=== PATIENT | female | born 1955 | race Caucasian/White ===

== ENCOUNTER → 2023-08-08 08:50 | Outpatient (REF) | payer MEDICARE, OTHER, SELFPAY | LOC: HWWDC 08:50 | PROVIDERS: ATTENDING PHYSICIAN Family Medicine | DX: Z12.31 Encounter for screening mammogram for malignant neoplasm of breast (principal) | CPT/HCPCS: 77063; 77067 ==

== ENCOUNTER 2023-11-07 06:18 | Day surgery (SDC) | payer MEDICARE, OTHER, SELFPAY ==
[2023-11-07 08:10] VITALS: BMI 20.3
[2023-11-07 08:15] VITALS: BP 127/64
[2023-11-07 08:30] VITALS: BMI 20.3
[2023-11-07 09:48] VITALS: BP 118/62
[2023-11-07 10:00] VITALS: BP 134/55
[2023-11-07 10:09] VITALS: BP 114/66
== END 2023-11-07 10:20 | disposition home or self-care (01) ==
LOC: SDS 06:18
PROVIDERS: ATTENDING PHYSICIAN Internal Medicine Gastroenterology
DX: Z12.11 Encounter for screening for malignant neoplasm of colon (principal); D12.0 Benign neoplasm of cecum; D12.2 Benign neoplasm of ascending colon; K64.0 First degree hemorrhoids; D12.3 Benign neoplasm of transverse colon; Z86.010 Personal history of colon polyps; Z98.890 Other specified postprocedural states
CPT/HCPCS: 45385; 45380; 88305

== ENCOUNTER → 2024-10-22 13:08 | Outpatient (REF) | payer MEDICARE, OTHER, SELFPAY | LOC: HWWDC 13:08 | PROVIDERS: ATTENDING PHYSICIAN Family Medicine | DX: Z12.31 Encounter for screening mammogram for malignant neoplasm of breast (principal) | CPT/HCPCS: 77063; 77067 ==

== ENCOUNTER 2024-11-14 06:05 | Day surgery (SDC) | payer MEDICARE, OTHER, SELFPAY ==
[2024-11-14 06:58] VITALS: BP 154/85
[2024-11-14 07:17] VITALS: BMI 20.1
[2024-11-14 07:20] VITALS: BMI 20.1
[2024-11-14 09:15] VITALS: BP 124/61
[2024-11-14 09:30] VITALS: BP 127/76
== END 2024-11-14 09:45 | disposition home or self-care (01) ==
LOC: SDS 06:05
PROVIDERS: ATTENDING PHYSICIAN Internal Medicine Gastroenterology
DX: Z12.11 Encounter for screening for malignant neoplasm of colon (principal); K64.0 First degree hemorrhoids; D12.0 Benign neoplasm of cecum; K63.5 Polyp of colon; Z98.890 Other specified postprocedural states; Z86.0101 Personal history of adenomatous and serrated colon polyps
CPT/HCPCS: 45385; 88305